=== PATIENT | female | born 1950 | race Caucasian/White ===

== ENCOUNTER → 2017-05-08 | Outpatient (CLI) | payer MEDICARE, BC ==
[~2017-05-08] MED LIST: ACIPHX20PT PO; AMLO-96 PO; AMOX-362 PO; ASPI-1471 PO; ATOR10TA24 PO; CALC600T82 PO; CHOL10005 PO; CHOL400D5 PO; CYCL25CA13 PO; CYCL25CA9 PO; DILT240C2 PO; FERR240T18 PO; FERR324T16 PO; HYDR-4309 PO; METO-253 PO; PRE5 PO; RANI-324 PO; RANI75TA5 PO; SMZ-TMP PO; SULF-198 PO; VIT-35 PO; VITA1CAP46 PO; [UNRECOGNIZED DRUG - OTHER] PO
[2017-05-08 08:44] LABS: PLATELET COUNT, AUTOMATED 252 K/uL (150-450)
== END ==
LOC: LAB 08:09
PROVIDERS: ATTEND Internal Medicine Nephrology
DX: I15.1 Hypertension secondary to other renal disorders (principal); N28.89 Other specified disorders of kidney and ureter; Z94.0 Kidney transplant status
CPT/HCPCS: 36415; 80158; 82040; 82570; 84100; 84156; 85025

== ENCOUNTER → 2017-05-08 | Outpatient (CLI) | payer MEDICARE, BC | LOC: LAB 08:01 | PROVIDERS: ATTEND Nurse Practitioner Family | DX: R60.9 Edema, unspecified (principal); M10.00 Idiopathic gout, unspecified site; L68.0 Hirsutism; I15.8 Other secondary hypertension; Z94.0 Kidney transplant status; R53.83 Other fatigue; R01.1 Cardiac murmur, unspecified; E55.9 Vitamin D deficiency, unspecified; E53.8 Deficiency of other specified B group vitamins | CPT/HCPCS: 36415; 80158; 82040; 82247; 82306; 82310; 82374; 82435; 82465; 82565; 82570; 82607; 82947; 83718; 84075; 84100; 84132; 84155; 84156; 84295; 84443; 84450; 84460; 84478; 84520; 85025 ==

== ENCOUNTER → 2017-07-04 | Outpatient (CLI) | payer MEDICARE, BC ==
[~2017-07-04] MED LIST changes: -RANI-324 PO; +RANI-366 PO
== END ==
LOC: LAB 09:41
PROVIDERS: ATTEND Orthopaedic Surgery
DX: M25.541 Pain in joints of right hand (principal); M19.90 Unspecified osteoarthritis, unspecified site
CPT/HCPCS: 36415; 84550; 85027; 85651; 86038; 86140; 86430

== ENCOUNTER → 2017-07-10 | Outpatient (CLI) | payer MEDICARE, BC ==
[~2017-07-10] MED LIST changes: +NS(*) 0.9% 500 ML BAG 500 ML ONE
--- NOTE | 2017-07-20 11:00 | RADIOLOGY IMAGING REPORT ---
FAC[place]: [facility] [place] NAME: ALYCE MELTON : [id number] MR: [id number] V: [id number] EXAM DATE: [id number] ORDERING PHYSICIAN: DEMOND SHARMA TECHNOLOGIST: Ronda Arriola EXAMINATION:TWO-DIMENSIONAL ECHOCARDIOGRAPH REASON:MURMUR 2D Measurements (normal values in centimeters) LV endLV endRV endVent.LV PostAorticLeftPercent DiastolicSystolicDiastolicSeptumWallRootAtriumShortening (3.5-5.7)(0.9-2.6)(0.6-1.1)(0.6-1.1)(2.0-3.7)(1.9-4.0)(25-35%) [id number]% ESTIMATED CORONARY ARTERY SYSTOLIC PRESSURE: 30-35 TRICUSPID REGURGITATION: 2.6M STROKE VOLUME: 22ml ESTIMATED EJECTION FRACTION:60-66% PARASTERNAL LONG AXIS: View shows normal contractility of interventricular septum & posterior wall. The aortic & mitral valves are grossly normal. Ascending aorta is normal. Left atrium is not dilated. PARASTERNAL SHORT AXIS: At the level of the aortic valve show trileaflet valve with normal excursion. The 4 chamber view shows normal contractility of left ventricular apex & lateral wall. In the 4 chamber view Right ventricular size & contractility, tricuspid valve & right atrium are normal. SUBCOSTAL VIEW: View does not suggest an atrioseptal defect. Doppler color flow imaging shows 1+ aortic regurgitation. The aortic regurgitation pressure half time is >500msec. Mitral valve shows mild central mitral regurgitation. There is also mild central tricuspid regurgitation with velocities as previously described. OVERALL IMPRESSION: 1. Normal left ventricular size & contractility with ejection fraction 60-65% & no obvious segmental wall motion abnormality. 2. Normal appearing mitral valve with trace to mild central mitral regurgitation. 3. Normal appearing aortic valve with trace to mild central aortic regurgitation. 4. Upper limit of normal right heart pressures with pulmonary artery systolic pressure estimated at 30-35%. Dictated by: Ankit Brar M.D. on 07/14/2017 at 15:05 Transcribed by: SANDRINE on 07/14/2017 at 15:49 Approved by: Ankit Brar M.D. on 07/20/2017 at 10:59 [facility]
== END ==
LOC: RAD 01:31
PROVIDERS: ATTEND Nurse Practitioner Family
DX: I35.1 Nonrheumatic aortic (valve) insufficiency (principal); I34.0 Nonrheumatic mitral (valve) insufficiency
CPT/HCPCS: 93306

== ENCOUNTER → 2017-08-11 | Outpatient (CLI) | payer MEDICARE, BC ==
[~2017-08-11] MED LIST changes: -NS(*) 0.9% 500 ML BAG 500 ML ONE
[2017-08-11 09:28] LABS: PLATELET COUNT, AUTOMATED 236 K/uL (150-450)
== END ==
LOC: LAB 09:04
PROVIDERS: ATTEND Nurse Practitioner Family
DX: I15.8 Other secondary hypertension (principal); R01.1 Cardiac murmur, unspecified; R53.81 Other malaise; L21.0 Seborrhea capitis; M21.70 Unequal limb length (acquired), unspecified site; E55.9 Vitamin D deficiency, unspecified
CPT/HCPCS: 36415; 82040; 82247; 82310; 82374; 82435; 82565; 82947; 84075; 84132; 84155; 84295; 84443; 84450; 84460; 84520; 85025

== ENCOUNTER → 2017-10-12 | Outpatient (CLI) | payer MEDICARE, BC ==
--- NOTE | 2017-10-12 13:30 | RADIOLOGY IMAGING REPORT ---
FACILITY: [facility] [place] PATIENT NAME: ALYCE MELTON : [id number] MR: [id number] V: [id number] EXAM DATE: [id number] ORDERING PHYSICIAN: DEMOND SHARMA TECHNOLOGIST: Sonal Orellana PROCEDURE:BILATERAL DIGITAL SCREENING MAMMOGRAM WITH CAD ASSISTED INTERPRETATION & 3D TOMOSYNTHESIS COMPARISON:Prior mammograms 09/27/16, 09/09/15, 09/09/14, 09/06/13, 09/01/11. INDICATIONS:SCREENING FINDINGS: Small amount of fibroglandular tissue is seen throughout the breasts. The parenchymal pattern has remained stable allowing for difference in mammographic technique & patient positioning. There is no evidence of malignant appearing mass, malignant appearing calcifications or other secondary sign of malignancy in either breast. DIAGNOSTIC CATEGORY 1--NEGATIVE. RECOMMENDATIONS: ROUTINE MAMMOGRAM AND CLINICAL EVALUATION. IMPRESSION: BIRADS 1: Negative. No significant abnormality is seen. Dictated by: Karissa Otto M.D. on 10/12/2017 at 9:08 Transcribed by: [email or web address] on 10/12/2017 at 9:13 Approved by: Karissa Otto M.D. on 10/12/2017 at 13:28 [facility]
== END ==
LOC: MAMO 00:17
PROVIDERS: ATTEND Nurse Practitioner Family
DX: Z12.31 Encounter for screening mammogram for malignant neoplasm of breast (principal)
CPT/HCPCS: 77063; 77067

== ENCOUNTER → 2017-10-23 | Outpatient (CLI) | payer MEDICARE, BC ==
[2017-10-23 08:20] LABS: PLATELET COUNT, AUTOMATED 222 K/uL (150-450)
== END ==
LOC: LAB 08:00
PROVIDERS: ATTEND Internal Medicine Nephrology
DX: Z94.0 Kidney transplant status (principal); N18.3 Chronic kidney disease, stage 3 (moderate); E78.5 Hyperlipidemia, unspecified
CPT/HCPCS: 36415; 80158; 82040; 82247; 82248; 82310; 82374; 82435; 82565; 82570; 82947; 84075; 84100; 84132; 84155; 84156; 84295; 84450; 84460; 84520; 85025

== ENCOUNTER → 2018-01-23 | Outpatient (CLI) | payer MEDICARE, BC ==
[~2018-01-23] MED LIST changes: +AMLO-111 PO; -AMLO-96 PO; -HYDR-4309 PO; +HYDR-653 PO; -RANI75TA5 PO; +RANI75TA51 PO
[2018-01-23 09:47] LABS: PLATELET COUNT, AUTOMATED 240 K/uL (150-450)
== END ==
LOC: LAB 09:29
PROVIDERS: ATTEND Nurse Practitioner Family
DX: R76.8 Other specified abnormal immunological findings in serum (principal); R01.1 Cardiac murmur, unspecified; M10.00 Idiopathic gout, unspecified site; L68.0 Hirsutism; I15.8 Other secondary hypertension; Z94.0 Kidney transplant status; R53.81 Other malaise; R79.9 Abnormal finding of blood chemistry, unspecified; E55.9 Vitamin D deficiency, unspecified; I10 Essential (primary) hypertension
CPT/HCPCS: 36415; 82040; 82247; 82306; 82310; 82374; 82435; 82465; 82565; 82607; 82728; 82947; 83718; 84075; 84132; 84155; 84295; 84443; 84450; 84460; 84478; 84520; 85025

== ENCOUNTER → 2018-04-23 | Outpatient (CLI) | payer MEDICARE, BC ==
[~2018-04-23] MED LIST changes: -AMLO-111 PO; +AMLO-125 PO
[2018-04-23 08:36] LABS: PLATELET COUNT, AUTOMATED 276 K/uL (150-450)
== END ==
LOC: LAB 08:13
PROVIDERS: ATTEND Internal Medicine Nephrology
DX: I12.9 Hypertensive chronic kidney disease with stage 1 through stage 4 chronic kidney disease, or unspecified chronic kidney disease (principal); N18.3 Chronic kidney disease, stage 3 (moderate); E83.52 Hypercalcemia; I15.1 Hypertension secondary to other renal disorders; N28.89 Other specified disorders of kidney and ureter; Z94.0 Kidney transplant status; E87.2 Acidosis; D64.9 Anemia, unspecified
CPT/HCPCS: 36415; 80158; 82040; 82310; 82374; 82435; 82565; 82570; 82728; 82947; 83540; 83550; 83735; 84100; 84132; 84156; 84295; 84520; 85025

== ENCOUNTER → 2018-08-27 | Outpatient (CLI) | payer MEDICARE, BC ==
[~2018-08-27] MED LIST changes: -RANI-366 PO; +RANI-54 PO
[2018-08-27 09:07] LABS: PLATELET COUNT, AUTOMATED 252 K/uL (150-450)
== END ==
LOC: LAB 08:45
PROVIDERS: ATTEND Nurse Practitioner Family
DX: R53.81 Other malaise (principal); E87.8 Other disorders of electrolyte and fluid balance, not elsewhere classified; D50.9 Iron deficiency anemia, unspecified; E53.8 Deficiency of other specified B group vitamins; E55.9 Vitamin D deficiency, unspecified
CPT/HCPCS: 36415; 82040; 82247; 82306; 82310; 82374; 82435; 82565; 82607; 82728; 82947; 84075; 84132; 84155; 84295; 84443; 84450; 84460; 84520; 85025